=== PATIENT | male | born 2000 | race Caucasian/White ===

== ENCOUNTER 2020-01-10 13:50 | Inpatient (IN) | payer OTHER ==
[~2020-01-10] VITALS: Ht 185.4 cm; Wt 78.9 kg
[2020-01-10] MEDS ORDERED: ACETAMINOPHEN 325 MG TABLET PO PRN ×2 (16:00→16:30)
[2020-01-10 16:30] VITALS: BP 128/72
[2020-01-10 17:00] LABS: BASOPHILS % (AUTO) 0.2 % (0.0-2.0); EOSINOPHILS % (AUTO) 0 % (1.0-6.0); HEMATOCRIT 44.2 % (41-53); HEMOGLOBIN 14.4 g/dL (13.5-17.5); LYMPHOCYTES # (AUTO) 1.2 K/uL (1.0-4.8); LYMPHOCYTES % (AUTO) 9.8 % (22.0-44.0); MEAN CORPUSCULAR HEMOGLOBIN 29.2 pg (26.0-34.0); MEAN CORPUSCULAR HGB CONC 32.6 G/dL (31.0-37.0); MEAN CORPUSCULAR VOLUME 90 fL (80-100); MONOCYTES # (AUTO) 0.4 K/uL (0.1-1.0); NEUTROPHILS # (AUTO) 10.3 K/uL (1.8-7.7); PLATELET COUNT (AUTO) 200 K/uL (150-450); RED BLOOD CELL COUNT(AUTO) 4.93 MIL/uL (4.50-5.90); RED CELL DISTRIBUTION WIDTH 12.7 % (11.5-14.5)
[2020-01-10 17:15] LABS: ALANINE AMINOTRANSFERASE 45 U/L (12-78); ALBUMIN 3.6 g/dL (3.4-5.0); ALKALINE PHOSPHATASE 62 U/L (46-116); ANION GAP 7 mmol/L (8-16); ASPARTATE AMINOTRANSFERASE 16 U/L (15-37); BILIRUBIN,TOTAL 0.3 mg/dL (0.1-1.0); CARBON DIOXIDE 28 mmol/L (22-29); CHLORIDE 99 mmol/L (98-107); CREATININE 0.94 mg/dL (0.60-1.30); GLOMERULAR FILTR. RATE CALC > 60 mL/min (>60); GLUCOSE,RANDOM 104 mg/dL (70-110); POTASSIUM 4.3 mmol/L (3.5-5.1); SODIUM SERUM 134 mmol/L (136-145); TOTAL PROTEIN, SERUM 7.6 g/dL (6.4-8.2); UREA NITROGEN, BLOOD 28 mg/dL (7-18)
[2020-01-10] MEDS: ENOXAPARIN SODIUM 40 MG/0.4 ML PF SYRINGE SQ SCH (18:00)
[2020-01-10] MEDS ORDERED: INFLUENZA VIRUS VACCINE QVS 2019-20 (3YR+)/PF 60 MCG/0.5 ML SYRINGE IM ONE (18:15)
[2020-01-10] MEDS: DOCUSATE SODIUM 100 MG CAPSULE PO SCH (20:13)
[2020-01-10 23:30] VITALS: BP 120/60
[2020-01-11] MEDS: OMEPRAZOLE 20 MG CAPSULE PO SCH (05:56)
[2020-01-11 07:20] VITALS: BP 113/65
[2020-01-11] MEDS: ENOXAPARIN SODIUM 40 MG/0.4 ML PF SYRINGE SQ SCH (08:14)
[2020-01-11] MEDS: SULFAMETHOX/TRIMETH DS 800-160 MG/TABLET PO SCH (08:15)
[2020-01-11] MEDS: PredniSONE 20 MG TABLET PO SCH (08:15)
[2020-01-11] MEDS: DOCUSATE SODIUM 100 MG CAPSULE PO SCH ×2 (08:42→20:07)
[2020-01-11] MEDS ORDERED: ENOXAPARIN SODIUM 40 MG/0.4 ML PF SYRINGE SQ SCH (09:00)
[2020-01-11 15:26] VITALS: BP 126/66
[2020-01-12 00:45] VITALS: BP 127/69
[2020-01-12] MEDS: OMEPRAZOLE 20 MG CAPSULE PO SCH (06:18)
[2020-01-12 07:30] VITALS: BP 122/68
[2020-01-12] MEDS: PredniSONE 20 MG TABLET PO SCH (07:58)
[2020-01-12] MEDS: ENOXAPARIN SODIUM 40 MG/0.4 ML PF SYRINGE SQ SCH (08:00)
[2020-01-12] MEDS: DOCUSATE SODIUM 100 MG CAPSULE PO SCH ×2 (08:05→21:00)
[2020-01-12 15:47] VITALS: BP 112/69
[2020-01-13 00:28] VITALS: BP 129/73
[2020-01-13] MEDS: MELATONIN 5 MG TABLET PO PRN ×2 (00:40→22:05)
[2020-01-13] MEDS: OMEPRAZOLE 20 MG CAPSULE PO SCH (05:56)
[2020-01-13 08:02] VITALS: BP 129/64
[2020-01-13] MEDS: SULFAMETHOX/TRIMETH DS 800-160 MG/TABLET PO SCH (08:34)
[2020-01-13] MEDS: PredniSONE 20 MG TABLET PO SCH (08:34)
[2020-01-13] MEDS: ENOXAPARIN SODIUM 40 MG/0.4 ML PF SYRINGE SQ SCH (08:35)
[2020-01-13] MEDS: DOCUSATE SODIUM 100 MG CAPSULE PO SCH ×3 (08:35→20:01)
[2020-01-13 15:22] VITALS: BP 126/68
[2020-01-14 06:00] VITALS: BP 111/42
[2020-01-14] MEDS: OMEPRAZOLE 20 MG CAPSULE PO SCH (06:13)
[2020-01-14 07:21] VITALS: BP 125/69
[2020-01-14] MEDS: DOCUSATE SODIUM 100 MG CAPSULE PO SCH ×2 (08:01→20:59)
[2020-01-14] MEDS: ENOXAPARIN SODIUM 40 MG/0.4 ML PF SYRINGE SQ SCH (08:02)
[2020-01-14] MEDS: PredniSONE 10 MG TABLET PO SCH (08:03)
[2020-01-14 16:01] VITALS: BP 116/60
[2020-01-14] MEDS: MELATONIN 5 MG TABLET PO PRN (20:59)
[2020-01-15] MEDS: OMEPRAZOLE 20 MG CAPSULE PO SCH (05:25)
[2020-01-15 05:32] VITALS: BP 126/70
[2020-01-15 08:02] VITALS: BP 115/69
[2020-01-15] MEDS: ERGOCALCIFEROL (VIT D2) 50,000 UNITS [1,250 MCG] CAPSULE PO SCH (08:27)
[2020-01-15] MEDS: PredniSONE 10 MG TABLET PO SCH (08:27)
[2020-01-15] MEDS: ENOXAPARIN SODIUM 40 MG/0.4 ML PF SYRINGE SQ SCH (08:27)
[2020-01-15] MEDS: DOCUSATE SODIUM 100 MG CAPSULE PO SCH ×2 (08:28→19:25)
[2020-01-15 15:37] VITALS: BP 121/66
[2020-01-15] MEDS: MELATONIN 5 MG TABLET PO PRN (20:46)
[2020-01-16 04:30] VITALS: BP 111/57
[2020-01-16] MEDS: OMEPRAZOLE 20 MG CAPSULE PO SCH (05:06)
[2020-01-16 07:08] VITALS: BP 122/59
[2020-01-16 07:29] LABS: BASOPHILS % (AUTO) 0.3 % (0.0-2.0); EOSINOPHILS % (AUTO) 0.6 % (1.0-6.0); HEMATOCRIT 39.3 % (41-53); HEMOGLOBIN 13.1 g/dL (13.5-17.5); LYMPHOCYTES # (AUTO) 2.4 K/uL (1.0-4.8); LYMPHOCYTES % (AUTO) 31.7 % (22.0-44.0); MEAN CORPUSCULAR HGB CONC 33.3 G/dL (31.0-37.0); MEAN CORPUSCULAR VOLUME 90 fL (80-100); MONOCYTES # (AUTO) 0.8 K/uL (0.1-1.0); MONOCYTES % (AUTO) 11.4 % (2.0-9.0); NEUTROPHILS # (AUTO) 4.2 K/uL (1.8-7.7); PLATELET COUNT (AUTO) 142 K/uL (150-450); RED BLOOD CELL COUNT(AUTO) 4.36 MIL/uL (4.50-5.90); RED CELL DISTRIBUTION WIDTH 13.3 % (11.5-14.5)
[2020-01-16] MEDS: SULFAMETHOX/TRIMETH DS 800-160 MG/TABLET PO SCH (07:47)
[2020-01-16] MEDS: ASPIRIN 81 MG EC TABLET PO SCH (07:47)
[2020-01-16 07:51] LABS: ALANINE AMINOTRANSFERASE 40 U/L (12-78); ALBUMIN 3.3 g/dL (3.4-5.0); ALKALINE PHOSPHATASE 55 U/L (46-116); ANION GAP 5 mmol/L (8-16); ASPARTATE AMINOTRANSFERASE 13 U/L (15-37); BILIRUBIN,TOTAL 0.3 mg/dL (0.1-1.0); CARBON DIOXIDE 32 mmol/L (22-29); CHLORIDE 104 mmol/L (98-107); GLOMERULAR FILTR. RATE CALC > 60 mL/min (>60); GLUCOSE,RANDOM 76 mg/dL (70-110); POTASSIUM 4.5 mmol/L (3.5-5.1); SODIUM SERUM 141 mmol/L (136-145); TOTAL PROTEIN, SERUM 6.6 g/dL (6.4-8.2); UREA NITROGEN, BLOOD 19 mg/dL (7-18)
[2020-01-16] MEDS: PredniSONE 10 MG TABLET PO SCH (08:10)
[2020-01-16 16:36] VITALS: BP 112/66
[2020-01-16] MEDS: MELATONIN 5 MG TABLET PO PRN (21:32)
[2020-01-17] MEDS: OMEPRAZOLE 20 MG CAPSULE PO SCH (05:50)
[2020-01-17 05:59] VITALS: BP 116/68
[2020-01-17] MEDS: DOCUSATE SODIUM 100 MG CAPSULE PO PRN (07:58)
[2020-01-17] MEDS: PredniSONE 20 MG TABLET PO SCH (07:59)
[2020-01-17] MEDS: ASPIRIN 81 MG EC TABLET PO SCH (07:59)
[2020-01-17 08:00] VITALS: BP 129/66
[2020-01-17 15:21] VITALS: BP 104/68
[2020-01-17] MEDS: MELATONIN 5 MG TABLET PO PRN (20:32)
[2020-01-18] MEDS ORDERED: ASPI-1111 PO (04:32)
[2020-01-18] MEDS ORDERED: ERGO500054 PO (04:32)
[2020-01-18] MEDS ORDERED: OMEP20 PO (04:32)
[2020-01-18] MEDS: OMEPRAZOLE 20 MG CAPSULE PO SCH (05:44)
[2020-01-18 06:00] VITALS: BP 129/72
[2020-01-18] MEDS: PredniSONE 20 MG TABLET PO SCH (08:09)
[2020-01-18] MEDS: SULFAMETHOX/TRIMETH DS 800-160 MG/TABLET PO SCH (08:09)
[2020-01-18] MEDS: ASPIRIN 81 MG EC TABLET PO SCH (08:09)
[2020-01-18 08:12] VITALS: BP 119/76
[2020-01-18 15:10] VITALS: BP 136/72
[2020-01-18] MEDS: DOCUSATE SODIUM 100 MG CAPSULE PO PRN (18:41)
[2020-01-18] MEDS: POLYETHYLENE GLYCOL 3350 17 GM PACKET PO PRN (19:44)
[2020-01-18] MEDS: MELATONIN 5 MG TABLET PO PRN (20:29)
[2020-01-19 05:50] VITALS: BP 115/62
[2020-01-19] MEDS: OMEPRAZOLE 20 MG CAPSULE PO SCH (06:05)
[2020-01-19 07:32] VITALS: BP 125/64
[2020-01-19] MEDS: PredniSONE 20 MG TABLET PO SCH (08:40)
[2020-01-19] MEDS: ASPIRIN 81 MG EC TABLET PO SCH (08:40)
[2020-01-19] MEDS: DOCUSATE SODIUM 100 MG CAPSULE PO PRN (18:35)
[2020-01-19] MEDS: POLYETHYLENE GLYCOL 3350 17 GM PACKET PO PRN (18:35)
[2020-01-19] MEDS: MELATONIN 5 MG TABLET PO PRN (20:12)
[2020-01-19 20:58] VITALS: BP 124/76
[2020-01-20 05:30] VITALS: BP 123/71
[2020-01-20] MEDS: OMEPRAZOLE 20 MG CAPSULE PO SCH (05:39)
[2020-01-20 07:33] VITALS: BP 108/60
[2020-01-20] MEDS: ASPIRIN 81 MG EC TABLET PO SCH (08:36)
[2020-01-20] MEDS: PredniSONE 10 MG TABLET PO SCH (08:36)
[2020-01-20] MEDS: SULFAMETHOX/TRIMETH DS 800-160 MG/TABLET PO SCH (08:36)
[2020-01-20 15:15] VITALS: BP 125/77
[2020-01-20] MEDS: POLYETHYLENE GLYCOL 3350 17 GM PACKET PO PRN (17:31)
[2020-01-20] MEDS: DOCUSATE SODIUM 100 MG CAPSULE PO PRN (17:31)
[2020-01-20] MEDS: MELATONIN 5 MG TABLET PO PRN (20:34)
[2020-01-21 06:00] VITALS: BP 119/75
[2020-01-21] MEDS: OMEPRAZOLE 20 MG CAPSULE PO SCH (06:10)
[2020-01-21] MEDS: ASPIRIN 81 MG EC TABLET PO SCH (08:25)
[2020-01-21] MEDS: PredniSONE 10 MG TABLET PO SCH (08:25)
[2020-01-21 08:42] VITALS: BP 132/68
[2020-01-21 15:30] VITALS: BP 109/60
[2020-01-21] MEDS: MELATONIN 5 MG TABLET PO PRN (20:29)
[2020-01-21] MEDS: DOCUSATE SODIUM 100 MG CAPSULE PO PRN (20:29)
[2020-01-22 05:55] VITALS: BP 110/71
[2020-01-22] MEDS: OMEPRAZOLE 20 MG CAPSULE PO SCH (06:12)
[2020-01-22 07:11] VITALS: BP 115/56
[2020-01-22] MEDS: ERGOCALCIFEROL (VIT D2) 50,000 UNITS [1,250 MCG] CAPSULE PO SCH (08:00)
[2020-01-22] MEDS: PredniSONE 10 MG TABLET PO SCH (08:00)
[2020-01-22] MEDS: ASPIRIN 81 MG EC TABLET PO SCH (08:01)
[2020-01-22 15:06] VITALS: BP 127/71
[2020-01-22] MEDS: DOCUSATE SODIUM 100 MG CAPSULE PO PRN (20:03)
[2020-01-22] MEDS: MELATONIN 5 MG TABLET PO PRN (20:03)
[2020-01-23] MEDS: OMEPRAZOLE 20 MG CAPSULE PO SCH (05:15)
[2020-01-23 05:17] VITALS: BP 117/70
[2020-01-23 08:00] VITALS: BP 127/77
[2020-01-23] MEDS: ASPIRIN 81 MG EC TABLET PO SCH (08:13)
== END 2020-01-23 10:10 | disposition home or self-care (01) | DRG 97 ==
LOC: 2WR 13:50
PROVIDERS: ADMIT Physical Medicine & Rehabilitation; ATTEND Physical Medicine & Rehabilitation
DX: G04.00 Acute disseminated encephalitis and encephalomyelitis, unspecified (principal); G82.50 Quadriplegia, unspecified; E46 Unspecified protein-calorie malnutrition; E87.1 Hypo-osmolality and hyponatremia; E55.9 Vitamin D deficiency, unspecified; R33.9 Retention of urine, unspecified; Z28.21 Immunization not carried out because of patient refusal
CPT/HCPCS: 87081; 92507; 92523; 97110; 97112; 97116; 97163; 97166; 97530; 97535; 99368; J1650